=== PATIENT | female | born 2005 | race Caucasian/White ===

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

== ENCOUNTER → 2023-04-10 | Outpatient (REF) | payer BC ==
[2023-04-10 16:35] LABS: HEMATOCRIT 43.2 % (36.0-47.0)
[2023-04-10 17:02] LABS: PERCENT SATURATION 11.4 % (13.2-45.0)
[2023-04-10 17:05] LABS: FERRITIN 11.4 NG/ML (7.3-270.7)
== END ==
LOC: M LAB REF 16:13
PROVIDERS: ATTEND Nurse Practitioner Adult Health
DX: D50.9 Iron deficiency anemia, unspecified (principal)

== ENCOUNTER → 2023-08-22 | Outpatient (CLI) | payer BC ==
[2023-08-22 19:08] LABS: THYROGLOBULIN ANTIBODY < 15.0 U/ML (<60.0); THYROID PEROXIDASE ANTIBODY < 28.0 U/ML (<60.0)
== END ==
LOC: M WUC 14:51
PROVIDERS: ATTEND Physician Assistant Medical
DX: M25.511 Pain in right shoulder (principal); R21 Rash and other nonspecific skin eruption; R07.0 Pain in throat

== ENCOUNTER → 2023-11-08 | Outpatient (REF) | payer OTHER ==
[2023-11-08 19:15] LABS: BASO % 0.4 % (0.0-1.0); EOS # 0.3 10^3/uL (0.0-0.5); EOS % 2.8 % (0.0-3.0); HEMOGLOBIN 12.7 g/dl (12.0-15.5); LYMPH # 2.6 10^3/uL (1.5-5.0); LYMPH % 28.5 % (24.0-44.0); MEAN CORPUSCULAR HEMOGLOBIN 27.3 pg (27.0-33.0); MEAN CORPUSCULAR HGB CONC 31.8 g/dl (32.0-36.5); MEAN CORPUSCULAR VOLUME 85.8 fl (80.0-96.0); MONO # 0.6 10^3/uL (0.0-0.8); MONO % 6.4 % (2.0-8.0); NEUTROPHILS # 5.7 10^3/uL (1.5-8.5); NEUTROPHILS % 61.7 % (36.0-66.0); PLATELET COUNT, AUTOMATED 274 10^3/uL (150-450); RED BLOOD COUNT 4.66 10^6/uL (4.00-5.40); WHITE BLOOD COUNT 9.3 10^3/uL (4.0-10.0)
[2023-11-08 19:40] LABS: ALBUMIN 4.2 G/DL (3.2-5.2); ALKALINE PHOSPHATASE 66 U/L (46-116); ALT/SGPT 21 U/L (7.0-40); AST/SGOT 14 U/L (<34); BILIRUBIN,TOTAL 0.2 MG/DL (0.3-1.2); BLOOD UREA NITROGEN 9 MG/DL (9-23); CALCIUM LEVEL 9.1 MG/DL (8.5-10.1); CARBON DIOXIDE LEVEL 30 MMOL/L (20-31); CHLORIDE LEVEL 107 MMOL/L (98-107); CREATININE FOR GFR 0.63 MG/DL (0.55-1.30); GLUCOSE, FASTING 91 MG/DL (60-100); SODIUM LEVEL 142 MMOL/L (136-145)
[2023-11-08 19:41] LABS: ANTI-STREPTOLYSIN O QUANT 79.1 IU/ML (<195); RHEUMATOID FACTOR QUANT < 3.5 IU/ML (<14)
[2023-11-11 01:06] LABS: CYCLIC CITRULLINATED PEPTIDE 7 units (0-19)
== END ==
LOC: M SFHCADAM 14:38
PROVIDERS: ATTEND Physician Assistant
DX: L30.8 Other specified dermatitis (principal)

== ENCOUNTER → 2024-02-29 | Outpatient (CLI) | payer OTHER | LOC: M EKG 12:43 | PROVIDERS: ATTEND Nurse Practitioner Psychiatric/Mental Health | DX: F90.2 Attention-deficit hyperactivity disorder, combined type (principal); I45.10 Unspecified right bundle-branch block ==

== ENCOUNTER → 2024-05-15 | Outpatient (REF) | payer OTHER | LOC: M LAB REF 15:25 | PROVIDERS: ATTEND Nurse Practitioner Adult Health | DX: Z20.818 Contact with and (suspected) exposure to other bacterial communicable diseases (principal) ==

== ENCOUNTER → 2025-05-18 | Outpatient (REF) | payer OTHER ==
[2025-05-18 15:36] LABS: IRON (FE) 45.0 UG/DL (50-170); PERCENT SATURATION 10.7 % (13.2-45.0)
== END ==
LOC: M LAB REF 14:26
PROVIDERS: ATTEND Nurse Practitioner Adult Health
DX: D50.9 Iron deficiency anemia, unspecified (principal)